=== PATIENT | female | born 1945 | race Caucasian/White ===

== ENCOUNTER 2020-03-03 09:15 | Inpatient (IN) | payer OTHER ==
[~2020-03-03] VITALS: Ht 160 cm; Wt 104.3 kg
[2020-03-03] MEDS ORDERED: LIPITOR20 MG PO (13:24)
[2020-03-03] MEDS ORDERED: MICARDIS80 MG PO (13:24)
[2020-03-03] MEDS ORDERED: CARVEDILOL6.25 MG (13:24)
[2020-03-03] MEDS ORDERED: CHILDREN'S ASPI81 MG PO (13:25)
[2020-03-03] MEDS ORDERED: PROBIOTIC1 EAC1 PO (13:25)
[2020-03-03] MEDS ORDERED: TRIPLE FLEX CA1 EACH PO (13:26)
== END 2020-03-12 16:48 | DRG 470 ==
LOC: SURH 03-10 05:00 → O/R 03-10 05:00 → SURH 03-10 09:15
PROVIDERS: ADMIT Orthopaedic Surgery; ATTEND Orthopaedic Surgery
PROC: 0QUD07Z Supplement Right Patella with Autologous Tissue Substitute, Open Approach (ICD-10-PCS; 2020-03-10)
PROC: 0SRC0J9 Replacement of Right Knee Joint with Synthetic Substitute, Cemented, Open Approach (ICD-10-PCS; principal; 2020-03-10 11:30)
DX: M17.11 Unilateral primary osteoarthritis, right knee (principal); D62 Acute posthemorrhagic anemia; K92.1 Melena

== ENCOUNTER 2021-06-20 10:58 | Emergency (ER) | payer OTHER ==
[~2021-06-20] VITALS: Ht 160 cm; Wt 99.8 kg
[~2021-06-20 10:58] MED LIST: CARVEDILOL6.25 MG; CHILDREN'S ASPI81 MG PO; LIPITOR20 MG PO; MICARDIS80 MG PO; PROBIOTIC1 EAC1 PO; TRIPLE FLEX CA1 EACH PO
== END 2021-06-20 16:33 | disposition home or self-care (01) ==
LOC: ER 10:58
DX: K57.90 Diverticulosis of intestine, part unspecified, without perforation or abscess without bleeding (principal); I10 Essential (primary) hypertension; R10.84 Generalized abdominal pain